=== PATIENT | male | born 1955 | race Caucasian/White ===

== ENCOUNTER 2016-08-07 09:30 | Outpatient (CLI) | payer MEDICARE | END 2016-08-07 09:31 | disposition home or self-care (01) | DX: E78.5 Hyperlipidemia, unspecified (principal); Z12.5 Encounter for screening for malignant neoplasm of prostate; E66.9 Obesity, unspecified; Z13.29 Encounter for screening for other suspected endocrine disorder | CPT/HCPCS: 36415; 80053; 80061; 84443; G0103 ==

== ENCOUNTER 2016-08-14 08:34 | Outpatient (CLI) | payer MEDICARE | END 2016-08-14 08:35 | disposition home or self-care (01) | DX: E66.9 Obesity, unspecified (principal); E78.5 Hyperlipidemia, unspecified; Z12.5 Encounter for screening for malignant neoplasm of prostate; Z13.29 Encounter for screening for other suspected endocrine disorder; Z11.59 Encounter for screening for other viral diseases | CPT/HCPCS: 36415; 80053; 80061; 84443; 86803; G0103 ==

== ENCOUNTER 2017-09-30 14:40 | Outpatient (CLI) | payer MEDICARE | END 2017-09-30 14:41 | disposition critical access hospital (66) | LOC: EMS 14:40 | PROVIDERS: ATTEND Surgery | DX: R07.81 Pleurodynia (principal); V29.9XXA Motorcycle rider (driver) (passenger) injured in unspecified traffic accident, initial encounter; Y92.410 Unspecified street and highway as the place of occurrence of the external cause | CPT/HCPCS: A0425; A0427 ==

== ENCOUNTER 2017-09-30 15:16 | Emergency (ER) | payer MEDICARE ==
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
--- NOTE | 2017-09-30 17:05 | XRAY Preliminary Report ---
Exam: XR RIBS W/PA CHEST RT IMPRESSION: 1. Displaced posterior right rib fracture. 2. Hypoinflation with probable associated very mild basilar atelectasis. [facility] SITE ID: [id number]
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
[2017-09-30 17:25] VITALS: BP 102/74
== END 2017-09-30 17:27 | disposition home or self-care (01) ==
LOC: EDUNIT# → ED 15:16
DX: S22.31XA Fracture of one rib, right side, initial encounter for closed fracture (principal); V28.4XXA Motorcycle driver injured in noncollision transport accident in traffic accident, initial encounter; Z86.73 Personal history of transient ischemic attack (TIA), and cerebral infarction without residual deficits
CPT/HCPCS: 99283

== ENCOUNTER 2019-11-18 17:34 | Outpatient (CLI) | payer MEDICARE ==
[2019-11-18 18:11] LABS: BASOPHILS % (AUTO) 0.3 %; EOSINOPHILS # (AUTO) 0.1 10^3/uL (0.0-0.7); EOSINOPHILS % (AUTO) 1.5 %; HGB - HEMOGLOBIN 15.6 g/dL (14.0-18.0); LYMPHOCYTES # (AUTO) 1.7 10^3/uL (1.5-3.5); LYMPHOCYTES % (AUTO) 25.7 %; MEAN CORPUSCULAR VOLUME 82.9 fL (80.0-94.0); MEAN PLATELET VOLUME 11.1 fL (7.4-11.4); MONOCYTES # (AUTO) 0.5 10^3/uL (0.0-1.0); MONOCYTES % (AUTO) 7.3 %; NEUTROPHILS # (AUTO) 4.2 10^3/uL (1.5-6.6); NEUTROPHILS % (AUTO) 64.6 %; PLT - PLATELET COUNT 201 10^3/uL (130-450); RED BLOOD COUNT 5.38 10^6/uL (4.70-6.10); RED CELL DISTRIBUTION WIDTH 12.9 % (12.0-15.0); WHITE BLOOD COUNT 6.5 x10^3/uL (4.8-10.8)
[2019-11-18 18:14] LABS: HB2 TOTAL 15.7 g/dL; HEMOGLOBIN A1C 1.54 g/dL; HEMOGLOBIN A1C % 11.1 % (4.6-6.2)
[2019-11-18 18:16] LABS: ALBUMIN 4.3 g/dL (3.2-5.5); ALBUMIN/GLOBULIN RATIO 1.5 (1.0-2.2); ALKALINE PHOSPHATASE 80 IU/L (42-121); ALT ALANINE AMINOTRANSFERASE 66 IU/L (10-60); AST ASPARTATE AMINOTRANSFERASE 42 IU/L (10-42); BILIRUBIN,TOTAL 1.2 mg/dL (0.2-1.0); BUN - BLOOD UREA NITROGEN 17 mg/dL (6-20); CALCIUM 8.6 mg/dL (8.5-10.3); CARBON DIOXIDE - CO2 23 mmol/L (21-32); CHLORIDE 103 mmol/L (101-111); CHOL/HDL RATIO 8.7 (<5.0); CHOLESTEROL 303 mg/dL; CREATININE 0.9 mg/dL (0.6-1.2); GLUCOSE 191 mg/dL (70-100); HDL CHOLESTEROL 35 mg/dL; LDL CHOLESTEROL,CALCULATED 216 mg/dL; LDL/HDL RATIO 6.2 (<3.6); SODIUM 133 mmol/L (135-145); TOTAL PROTEIN 7.1 g/dL (6.7-8.2); VLDL CHOLESTEROL 52 mg/dL
[2019-11-18 18:29] LABS: THYROID STIMULATING HORMONE 1.63 uIU/mL (0.34-5.60)
[2019-11-18 18:31] LABS: FREE T3 3.6 pg/mL (2.5-3.9); FREE T4 (FREE THYROXINE) 0.9 ng/dL (0.58-1.64)
== END 2019-11-18 17:35 | disposition home or self-care (01) ==
LOC: LAB 17:34
PROVIDERS: ATTEND Family Medicine
DX: R81 Glycosuria (principal); R63.1 Polydipsia
CPT/HCPCS: 36415; 80053; 80061; 83036; 83721; 84439; 84443; 84481; 85025

== ENCOUNTER 2021-07-15 08:00 | Outpatient (CLI) | payer MEDICARE ==
--- NOTE | 2021-07-15 15:49 | XRAY Report ---
PROCEDURE: Chest 2 View X-Ray INDICATIONS: Chest wall pain. TECHNIQUE: 2 view(s) of the chest. COMPARISON: None. FINDINGS: Surgical changes and devices: None. Lungs and pleura: No pleural effusions or pneumothorax. Lungs are clear. Mediastinum: Mediastinal contours are normal. Heart size is normal. Bones and chest wall: No suspicious bony abnormalities. Soft tissues appear unremarkable. IMPRESSION: No acute cardiopulmonary process demonstrated radiographically. No gross evidence of rib fracture or other significant osseous abnormality. Reviewed by: Blair Moyer MD on 07/15/2021 3:47 PM PST Approved by: Blair Moyer MD on 07/15/2021 3:47 PM PST Station ID: [id number]
[2021-07-15 19:59] LABS: ALBUMIN 4.2 g/dL (3.2-5.5); ALBUMIN/GLOBULIN RATIO 1.2 (1.0-2.2); BASOPHILS % (AUTO) 0.4 %; BILIRUBIN,TOTAL 0.7 mg/dL (0.2-1.0); CALCIUM 9.1 mg/dL (8.5-10.3); EOSINOPHILS # (AUTO) 0.1 10^3/uL (0.0-0.7); EOSINOPHILS % (AUTO) 1.4 %; HCT - HEMATOCRIT 46.4 % (42.0-52.0); HGB - HEMOGLOBIN 15.5 g/dL (14.0-18.0); LYMPHOCYTES % (AUTO) 28.4 %; MEAN CORPUSCULAR HEMOGLOBIN 27.7 pg (27.0-31.0); MEAN CORPUSCULAR HGB CONC 33.4 g/dL (32.0-36.0); MEAN PLATELET VOLUME 11.7 fL (7.4-11.4); MONOCYTES # (AUTO) 0.5 10^3/uL (0.0-1.0); MONOCYTES % (AUTO) 6.9 %; NEUTROPHILS # (AUTO) 4.3 10^3/uL (1.5-6.6); NEUTROPHILS % (AUTO) 62.5 %; PLT - PLATELET COUNT 196 10^3/uL (130-450); POTASSIUM 3.8 mmol/L (3.5-5.0); RED BLOOD COUNT 5.59 10^6/uL (4.70-6.10); RED CELL DISTRIBUTION WIDTH 13.1 % (12.0-15.0); TOTAL PROTEIN 7.6 g/dL (6.7-8.2)
== END 2021-07-15 23:59 | disposition home or self-care (01) ==
LOC: DI.S 08:00
PROVIDERS: ATTEND Emergency Medicine
DX: R07.89 Other chest pain (principal)
CPT/HCPCS: 36415; 80053; 85025; 85379

== ENCOUNTER 2021-08-09 07:18 | Outpatient (CLI) | payer MEDICARE ==
[2021-08-09] MEDS ORDERED: iohexoL-300 100 ML VIAL ONE (07:33)
[2021-08-09] MEDS ORDERED: iohexoL-300 100 ML VIAL IVP ONE (07:59)
--- NOTE | 2021-08-09 09:05 | CT Report ---
PROCEDURE: CHEST W INDICATIONS: CHEST WALL PAIN CONTRAST: IV CONTRAST: Optiray 320 ml: 100 PO CONTRAST: *NO PO CONTRAST TECHNIQUE: After the administration of intravenous contrast, 1 mm axial images were acquired from the pulmonary apices through the posterior costophrenic angles. Axial 5 mm soft tissue kernel reconstructions were performed as well as 8 mm axial MIP and coronal and sagittal 5 mm reformations. For radiation dose reduction, the following was used: automated exposure control, adjustment of mA and/or kV according to patient size. COMPARISON: Chest radiographs 07/15/2021 FINDINGS: Image quality: Excellent. Lungs and pleura: No acute air space opacities. Mild dependent atelectasis is seen in the right post erior lung. No pleural effusions or pneumothorax. Central and peripheral airways are patent and norm al in caliber. Mediastinum: Heart size is normal. No pericardial effusion. Moderate coronary artery calcifications . No mediastinal or hilar adenopathy by size criteria. Thoracic aorta and central pulmonary arteries are normal in size. Esophagus is normal in caliber. No hiatal hernia. Bones and chest wall: There are healed fractures of the right posterior second through seventh ribs. No acute rib fracture is seen. Mild degenerative changes are seen in the spine. The musculature surr ounding the chest is normal in bulk. A small incidental intramuscular lipoma is seen within the right pectoralis minor muscle laterally. No suspicious bony lesions. No vertebral body compression fractu res. No axillary or supraclavicular adenopathy by size criteria. The thyroid is normal in size. Abdomen: Visualized upper abdominal solid organs appear normal. Upper abdominal bowel loops are nor mal in caliber. IMPRESSION: 1.No acute abnormality is seen in the chest. 2.Multiple healed rib fractures involving the posterior right second through seventh ribs, some of wh ich demonstrate mild residual deformity. No acute rib fracture is seen. Reviewed by: Freedom Hudson MD on 08/09/2021 9:03 AM PST Approved by: Freedom Hudson MD on 08/09/2021 9:03 AM PST Station ID: [id number]
== END 2021-08-09 07:19 | disposition home or self-care (01) ==
LOC: DI 07:18
PROVIDERS: ATTEND Emergency Medicine
DX: R07.89 Other chest pain (principal); Z77.090 Contact with and (suspected) exposure to asbestos; S22.41XD Multiple fractures of ribs, right side, subsequent encounter for fracture with routine healing
CPT/HCPCS: 71260; Q9967